=== PATIENT | male | born 1970 | race Caucasian/White ===

== ENCOUNTER 2024-12-31 17:17 | Emergency (ER) | payer BC ==
[~2024-12-31] VITALS: Ht 170.2 cm; Wt 74.8 kg
[~2024-12-31 17:17] MED LIST: BACTRIM DS TAB1 EACH PO; erythromycin opth OP
[2024-12-31 18:20] VITALS: PULSE 66; RESP 15; TEMP 98.6
[2024-12-31] MEDS ORDERED: VALTREX1000 MG PO (19:08)
[2024-12-31 19:17] VITALS: BP 120/70; PULSE 71; RESP 18; TEMP 98.3; O2SAT 100
== END 2024-12-31 19:19 | disposition home or self-care (01) ==
LOC: ER 18:57
DX: B02.9 Zoster without complications (principal); I10 Essential (primary) hypertension; E78.5 Hyperlipidemia, unspecified
CPT/HCPCS: 99283